=== PATIENT | male | born 1975 | race Caucasian/White ===

== ENCOUNTER → 2017-03-10 | Outpatient (CLI) | payer SELFPAY ==
--- NOTE | 2017-03-10 15:18 | CT ---
EXAMINATION TYPE: CT heart w calcium score DATE OF EXAM: 03/10/2017 2:24 PM COMPARISON: NONE HISTORY: Screening for Cardiovascular disease CT DLP: 49.3 mGycm Automated exposure control for dose reduction was used. CT CALCIUM SCORING Coronary calcium is a marker for plaque (fatty deposits) in a blood vessel or atherosclerosis (harden ing of the arteries). The presence and amount of calcium detected in a coronary artery by the CT sca n, indicates the presence and amount of atherosclerotic plaque. These calcium deposits appear years before the development of heart disease symptoms such as chest pain and shortness of breath. A calcium score is computed for each of the coronary arteries based upon the volume and density of th e calcium deposits. This can be referred to as your calcified plaque burden. It does not correspond directly to the percentage of narrowing in the artery but does correlate with the severity of the un derlying coronary atherosclerosis. PROCEDURE TECHNIQUE - Prospective Gating was used. Slice thickness: 3mm. Density threshold (HU): 130, Pixel threshold: 3, Algorithm: discrete. RESULTS Region Calcium Score ([place]) Volume (mm3) Mass (g) LM 0 0 0 RCA 0 0 0 LAD 1 3 0.54 CX 0 0 0 Total 1 3 0 TOTAL CALCIUM SCORE 1 OTHER: No significant incidental findings. IMPRESSION: Calcium Score: 1-10 Implication: Minimal identifiable plaque. Risk of Coronary Artery Disease: Very unlikely, less than 10%.
== END | disposition home or self-care (01) ==
LOC: RADCTMAIN 13:50
PROVIDERS: ATTEND Radiology Diagnostic Radiology
DX: Z53.9 Procedure and treatment not carried out, unspecified reason (principal)

== ENCOUNTER → 2021-10-18 | Outpatient (CLI) | payer BC | END | disposition home or self-care (01) | LOC: LABWHC1 08:22 | PROVIDERS: ATTEND Radiology Diagnostic Radiology | DX: Z20.822 Contact with and (suspected) exposure to COVID-19 (principal) | CPT/HCPCS: 87635; C9803 ==

== ENCOUNTER → 2023-02-04 | Outpatient (CLI) | payer BC ==
--- NOTE | 2023-02-04 14:47 | MR ---
EXAMINATION TYPE: MR brain and iac wo/w con DATE OF EXAM: 02/04/2023 1:44 PM COMPARISON: NONE HISTORY: Left side Hearing loss TECHNIQUE: Multiplanar and multispin-echo imaging of the brain was performed both before and after the administr ation of contrast. High-resolution images are obtained of the internal auditory canals performed uti lizing 8 mL intravenous Gadavist contrast. The ventricles, basal cisterns and sulci overlying the cerebral convexities are within normal limits. There is no evidence for midline shift or mass effect. Acute intracranial hemorrhage or extra-axial collection is not evident. There are scattered nonspecific 2 mm foci of increased signal on the T2 FLAIR data set within the sub cortical locations bilaterally. High-resolution imaging of the internal auditory canals fails demonstrate evidence for an enhancing a coustic schwannoma or cerebellopontine cistern angle mass. Following contrast administration, there is no evidence for pathologic enhancement or enhancing mass. There is near complete opacification of the right maxillary sinus. Minimal mucosal thickening right e thmoid air cells. Moderate opacification right frontal sinus. Sphenoid sinuses well aerated as is the left maxillary sinus. Mastoid air cells are symmetric bilaterally. IMPRESSION: 1. No evidence of acoustic schwannoma or cerebellopontine angle mass. No MR evidence for labyrinthit is. 2. Nonspecific tiny white matter changes. 3. Chronic sinusitis as noted.
== END | disposition home or self-care (01) ==
LOC: RADMRIMAIN 12:54
PROVIDERS: ATTEND Otolaryngology
DX: J32.9 Chronic sinusitis, unspecified (principal); G93.89 Other specified disorders of brain; H91.92 Unspecified hearing loss, left ear; H93.12 Tinnitus, left ear
CPT/HCPCS: 70553; A9585